=== PATIENT | female | born 1955 | race Caucasian/White ===

== ENCOUNTER 2018-05-06 03:36 | Emergency (ER) | payer MEDICARE, MEDICAID, SELFPAY ==
[2018-05-06 03:56] VITALS: BP 138/84; PULSE 76; RESP 16; TEMP 36.9; O2SAT 93; BMI 47.5
--- NOTE | 2018-05-06 04:01 | ED.WOUNDLAC ---
HPI - Wound/Laceration General Chief Complaint: Wound/Laceration Stated Complaint: incision in back broken, bleeding, bruising Time Seen by Provider: 05/06/18 04:01 Source: patient Mode of arrival: ambulatory Limitations: no limitations History of Present Illness HPI narrative: The patient had a nerve stimulator placed in her lumbar back about 3 weeks ago due to back pain and leg weakness. The operation was a success. However she is now having pain and swelling in his operative site. The site is leaking blood. She has had no fever or chills. There has been no injury to the site. She is not anticoagulated. Review of Systems Constitutional Denies chills, Denies fever(s), Denies lethargy and Denies weakness Cardiovascular Denies chest pain and Denies dyspnea Respiratory Denies cough and Denies dyspnea Integumentary/Breasts Reports bleeding lesions Neurologic Denies weakness PFSH Medical History Chronic back pain (Acute) Social History Smoking Status: Never smoker Exam Initial Vital Signs Initial Vital Signs: Vital Signs Temperature 98.5 F 05/06/18 03:56 Pulse Rate 76 05/06/18 03:56 Respiratory Rate 16 05/06/18 03:56 Blood Pressure 138/84 05/06/18 03:56 Pulse Oximetry 93 05/06/18 03:56 Const General: cooperative, well developed and well groomed Nutritional Appearance: well nourished Orientation: alert, awake, oriented x3 and not confused Back/Spine/Pelvis Back: other (Moderate size hematoma in the right lumbar lower back. The hematoma is in the surgical site. There is drainage of old, black blood from a small area in the surgical line. There is no inflammation/ erythema. There is no warmth.) Course Vital Signs - 8 hr 05/06/18 03:56 Temperature 98.5 F Pulse Rate 76 Respiratory Rate 16 Blood Pressure 138/84 Pulse Oximetry 93 Discharge Plan Departure Patient Disposition: Home Clinical Impression: Postoperative hematoma Instructions: DI for Hematoma (Bruise) Activity Restrictions/Additional Instructions: Apply warm compresses to the site frequently. Change dressings as needed. FU develop redness at the site or fever return to the ER or see her doctor.
[2018-05-06 04:28] VITALS: BP 131/82; PULSE 77; RESP 16; O2SAT 94
--- NOTE | 2018-05-06 04:32 | PC.NURSE ---
surgical inscision from three weeks ago is now draining dark red blood.
--- NOTE | 2018-05-06 04:34 | PC.NURSE ---
surgical inscision covered with a bandaid prior to discharge.
== END 2018-05-06 04:36 | disposition home or self-care (01) ==
PROVIDERS: Emergency Provider Emergency Medicine
DX: M96.840 Postprocedural hematoma of a musculoskeletal structure following a musculoskeletal system procedure (principal)
CPT/HCPCS: 99283

== ENCOUNTER → 2019-12-23 12:56 | Outpatient (ROUT) | payer MEDICARE, MEDICAID, SELFPAY ==
[2019-12-24 18:07] LABS: COVID19 Sendout Not Detected (Not Detected)
== END ==
PROVIDERS: Visit Provider Internal Medicine
DX: Z11.59 Encounter for screening for other viral diseases (principal)
CPT/HCPCS: 87635